=== PATIENT | male | born 1985 | race African-American/Black ===

== ENCOUNTER 2020-05-02 15:49 | Emergency (ER) | payer OTHER | END 2020-05-02 16:39 | disposition home or self-care (01) | LOC: ERS 15:49 | DX: F23 Brief psychotic disorder (principal); Z76.0 Encounter for issue of repeat prescription | CPT/HCPCS: 99281 ==

== ENCOUNTER 2020-09-20 16:35 | Emergency (ER) | payer OTHER | END 2020-09-20 17:52 | disposition home or self-care (01) | LOC: ERS 16:35 | DX: F20.9 Schizophrenia, unspecified (principal); Z76.0 Encounter for issue of repeat prescription | CPT/HCPCS: 99281 ==